=== PATIENT | female | born 1960 | race African-American/Black ===

== ENCOUNTER 2020-12-05 10:30 | Inpatient (IN) | payer OTHER, MEDICAID ==
[~2020-12-05] VITALS: Ht 165.1 cm; Wt 134.1 kg
[2020-12-05] VITALS (26 sets, daily range): BP systolic 92–147; BP diastolic 48–84
[2020-12-05 11:35] LABS: Eosinophils # (auto) 0.1 10 ^3/uL (0-0.8); Neutrophils # (auto) 5.5 10 ^3/uL (1.6-8.6); White Blood Cell 7.5 10^3/uL (4.4-10.8)
[2020-12-05 11:37] LABS: Basophils # (auto) 0 10 ^3/uL (0-0.2); Basophils % (auto) 0.3 % (0.0-2.0); Eosinophils % (auto) 1.5 % (0.0-7.0); Hematocrit 39.3 % (36.0-46.0); Hemoglobin 12.1 g/dL (12.2-16.2); Lymphocytes # (auto) 1.3 10 ^3/uL (0.4-5.4); Lymphocytes % (auto) 17.9 % (10.0-50.0); Mean Corpuscular Hemoglobin 28.4 pg (28.0-32.0); Mean Corpuscular Hgb Conc. 30.9 g/dL (32.0-36.0); Mean Corpuscular Volume 91.9 fL (80.0-100.0); Monocytes # (auto) 0.5 10 ^3/uL (0-1.3); Monocytes % (auto) 6.4 % (0.0-12.0); Neutrophils % (auto) 73.9 % (37.0-80.0); Nucleated Red Blood Cells % 0.2 %; Red Blood Cells 4.28 10^6/uL (4.0-5.20); Red Cell Distribution Width 16.6 % (11.8-14.3)
[2020-12-05 11:50] LABS: Urine Bacteria FEW /hpf (None Seen); Urine Blood Negative /uL (Negative); Urine Hyaline Cast FEW /lpf (0 - 2); Urine Mucus FEW (None Seen); Urine Specific Gravity 1.014 (1.001-1.035); Urine WBC 1 /hpf (0 - 5)
[2020-12-05 12:00] LABS: Chloride 94 mmol/L (98-107); Potassium 4.5 mmol/L (3.5-5.1); Sodium 140 mmol/L (136-145)
[2020-12-05 12:09] LABS: Alanine Aminotransferase 9 U/L (13-56); Alkaline Phosphatase 67 U/L (45-117); Aspartate Aminotransferase 9 U/L (15-37); BUN/Creatinine Ratio 34.5; Bilirubin, Total 0.3 mg/dL (0.2-1.0); Blood Urea Nitrogen 20 mg/dL (7-18); Calcium 8.8 mg/dL (8.5-10.1); GFR African American 135 mL/min; GFR Non-African American 112 mL/min; Glucose 167 mg/dL (74-106)
[2020-12-05 12:44] LABS: Anion Gap -1 (5-15); Carbon Dioxide 47 mmol/L (21-32)
[2020-12-05] MEDS ORDERED: SUCCINYLCHOLINE CHLORIDE 20 MG/ML 10ML VIAL IV ONE ×2 (16:42→16:45)
[2020-12-05] MEDS ORDERED: ETOMIDATE (2MG/ML) 20ML VIAL IV ONE ×2 (16:42→16:45)
[2020-12-05] MEDS: NOREPINEPHRINE 8 MG/250ML KIT 250 ML IV SCH (16:45)
[2020-12-05] MEDS: MIDAZOLAM DRIP 50 mg/50mL 50 ML IV SCH ×2 (16:50→20:54)
[2020-12-05] MEDS: fentaNYL Drip 2500mCg/250mlNS 250 ML IV SCH (17:12)
[2020-12-05] MEDS ORDERED: ONDANSETRON HCL 4 MG/2 ML VIAL IV PRN (17:15)
[2020-12-05] MEDS ORDERED: MORPHINE SULF INJ 2 MG/ML SYRINGE 1ML IV PRN ×2 (17:15)
[2020-12-05] MEDS ORDERED: HYDROcodone-ACET 5/325MG TAB PO PRN (17:15)
[2020-12-05] MEDS ORDERED: FUROSEMIDE 40 MG/4 ML VIAL IV ONE (17:15)
[2020-12-05] MEDS ORDERED: NITROGLYCERIN 0.4 MG SL TAB SL PRN (17:15)
[2020-12-05] MEDS: PROPOFOL 100 ML IV SCH (17:30)
[2020-12-05] MEDS ORDERED: cefTRIAXone 1GM/50ML D5W 50 ML IV ONE (17:30)
[2020-12-05] MEDS ORDERED: AZITHROMYCIN 500MG/ 250ML 250 ML IV ONE (18:30)
[2020-12-05] MEDS: ALBUTEROL SULF 2.5 MG/0.5ML(0.5%) NEB SOLN NEB SCH (20:23)
[2020-12-05] MEDS: IPRATROPIUM BROM 0.5 MG/2.5ML INH SOL NEB SCH (20:24)
[2020-12-05] MEDS: ENOXAPARIN SOD 40 MG/0.4 ML SYRINGE SC SCH (21:06)
[2020-12-05] MEDS: ACETAMINOPHEN 500 MG TAB PO PRN (22:28)
[2020-12-06] VITALS (99 sets, daily range): BP systolic 85–152; BP diastolic 44–77
[2020-12-06] MEDS: ALBUTEROL SULF 2.5 MG/0.5ML(0.5%) NEB SOLN NEB SCH ×5 (00:24→23:53)
[2020-12-06] MEDS: IPRATROPIUM BROM 0.5 MG/2.5ML INH SOL NEB SCH ×5 (00:24→23:53)
[2020-12-06] MEDS: fentaNYL Drip 2500mCg/250mlNS 250 ML IV SCH (02:03)
[2020-12-06] MEDS: MIDAZOLAM DRIP 50 mg/50mL 50 ML IV SCH ×5 (02:45→22:05)
[2020-12-06 04:25] LABS: Basophils # (auto) 0 10 ^3/uL (0-0.2); Basophils % (auto) 0.4 % (0.0-2.0); Eosinophils # (auto) 0.1 10 ^3/uL (0-0.8); Monocytes # (auto) 0.5 10 ^3/uL (0-1.3); Monocytes % (auto) 8.1 % (0.0-12.0); Neutrophils # (auto) 4.4 10 ^3/uL (1.6-8.6)
[2020-12-06 04:27] LABS: Hematocrit 39.1 % (36.0-46.0); Lymphocytes # (auto) 0.9 10 ^3/uL (0.4-5.4); Lymphocytes % (auto) 15.2 % (10.0-50.0); Mean Corpuscular Hemoglobin 28.2 pg (28.0-32.0); Mean Corpuscular Hgb Conc. 30.8 g/dL (32.0-36.0); Mean Corpuscular Volume 91.5 fL (80.0-100.0); Neutrophils % (auto) 74.3 % (37.0-80.0); Nucleated Red Blood Cells % 0.2 %; Red Blood Cells 4.27 10^6/uL (4.0-5.20); Red Cell Distribution Width 16.1 % (11.8-14.3); White Blood Cell 5.9 10^3/uL (4.4-10.8)
[2020-12-06 04:34] LABS: BUN/Creatinine Ratio 28.4; Calcium 8.6 mg/dL (8.5-10.1); Potassium 3.6 mmol/L (3.5-5.1)
[2020-12-06] MEDS: PROPOFOL 100 ML IV SCH (08:54)
[2020-12-06] MEDS: cefTRIAXone 1GM/50ML D5W 50 ML IV SCH (10:16)
[2020-12-06] MEDS: FUROSEMIDE 40 MG/4 ML VIAL IV SCH (10:17)
[2020-12-06] MEDS: ENOXAPARIN SOD 40 MG/0.4 ML SYRINGE SC SCH ×2 (10:17→22:05)
[2020-12-06] MEDS: AZITHROMYCIN 500MG/ 250ML 250 ML IV SCH (10:17)
[2020-12-06] MEDS ORDERED: DEXTROSE (50%) 50ML SYRG IV PRN (12:00)
[2020-12-06] MEDS: ACCU-CHEK COMFORT CURVE STRIP VI SCH ×2 (12:00→18:00)
[2020-12-06] MEDS ORDERED: Glucerna 1.2 Cal 1Liter BOTTLE GT SCH (12:00)
[2020-12-06] MEDS: InsuLIN REG 1unit/0.01ml Soln (100units/ml) SC SCH ×2 (12:00→18:00)
[2020-12-06] MEDS ORDERED: FAMOTIDINE (10MG/ML) 2ML VL IV ONE (12:00)
[2020-12-06] MEDS: NOREPINEPHRINE 8 MG/250ML KIT 250 ML IV SCH (16:45)
[2020-12-07] VITALS (74 sets, daily range): BP systolic 87–149; BP diastolic 36–86
[2020-12-07] MEDS: ACCU-CHEK COMFORT CURVE STRIP VI SCH ×5 (00:12→23:54)
[2020-12-07] MEDS: InsuLIN REG 1unit/0.01ml Soln (100units/ml) SC SCH ×4 (00:18→18:28)
[2020-12-07] MEDS: MIDAZOLAM DRIP 50 mg/50mL 50 ML IV SCH ×5 (02:07→22:40)
[2020-12-07] MEDS: PROPOFOL 100 ML IV SCH (05:40)
[2020-12-07 05:56] LABS: Basophils # (auto) 0.1 10 ^3/uL (0-0.2); Basophils % (auto) 0.6 % (0.0-2.0); Calcium 8.5 mg/dL (8.5-10.1); Eosinophils # (auto) 0.2 10 ^3/uL (0-0.8); Eosinophils % (auto) 2.7 % (0.0-7.0); Hematocrit 38.1 % (36.0-46.0); Lymphocytes # (auto) 0.7 10 ^3/uL (0.4-5.4); Lymphocytes % (auto) 7.9 % (10.0-50.0); Mean Corpuscular Hemoglobin 27.9 pg (28.0-32.0); Mean Corpuscular Hgb Conc. 31.4 g/dL (32.0-36.0); Mean Corpuscular Volume 88.8 fL (80.0-100.0); Monocytes # (auto) 0.6 10 ^3/uL (0-1.3); Monocytes % (auto) 7.5 % (0.0-12.0); Neutrophils # (auto) 6.8 10 ^3/uL (1.6-8.6); Neutrophils % (auto) 81.3 % (37.0-80.0); Nucleated Red Blood Cells % 0.1 %; Potassium 3.6 mmol/L (3.5-5.1); Red Blood Cells 4.28 10^6/uL (4.0-5.20); Red Cell Distribution Width 16.5 % (11.8-14.3); White Blood Cell 8.4 10^3/uL (4.4-10.8)
[2020-12-07] MEDS: IPRATROPIUM BROM 0.5 MG/2.5ML INH SOL NEB SCH ×3 (06:08→17:46)
[2020-12-07] MEDS: ALBUTEROL SULF 2.5 MG/0.5ML(0.5%) NEB SOLN NEB SCH ×3 (06:08→17:46)
[2020-12-07] MEDS: FUROSEMIDE 40 MG/4 ML VIAL IV SCH (11:11)
[2020-12-07] MEDS: cefTRIAXone 1GM/50ML D5W 50 ML IV SCH (11:11)
[2020-12-07] MEDS: ENOXAPARIN SOD 40 MG/0.4 ML SYRINGE SC SCH ×2 (11:12→22:00)
[2020-12-07] MEDS: AZITHROMYCIN 500MG/ 250ML 250 ML IV SCH (11:12)
[2020-12-07] MEDS: FAMOTIDINE (10MG/ML) 2ML VL IV SCH (11:12)
[2020-12-07] MEDS ORDERED: POTASSIUM EFFERVESENT TAB 25 MEQ GT ONE (13:15)
[2020-12-07] MEDS ORDERED: FUROSEMIDE 40 MG/4 ML VIAL IV ONE ×2 (13:15→13:30)
[2020-12-07] MEDS: NOREPINEPHRINE 8 MG/250ML KIT 250 ML IV SCH (16:45)
[2020-12-07] MEDS: fentaNYL Drip 2500mCg/250mlNS 250 ML IV SCH (22:30)
[2020-12-07] MEDS: ACETAMINOPHEN 500 MG TAB PO PRN (22:40)
[2020-12-08] VITALS (96 sets, daily range): BP systolic 88–131; BP diastolic 43–72
[2020-12-08] MEDS: IPRATROPIUM BROM 0.5 MG/2.5ML INH SOL NEB SCH ×4 (00:30→19:47)
[2020-12-08] MEDS: NOREPINEPHRINE 8 MG/250ML KIT 250 ML IV SCH (04:30)
[2020-12-08] MEDS: MIDAZOLAM DRIP 50 mg/50mL 50 ML IV SCH ×4 (04:32→19:45)
[2020-12-08 04:51] LABS: Basophils # (auto) 0.1 10 ^3/uL (0-0.2); Basophils % (auto) 0.6 % (0.0-2.0); Eosinophils # (auto) 0.4 10 ^3/uL (0-0.8); Eosinophils % (auto) 4.6 % (0.0-7.0); Hematocrit 38.9 % (36.0-46.0); Hemoglobin 12.5 g/dL (12.2-16.2); Lymphocytes # (auto) 0.9 10 ^3/uL (0.4-5.4); Lymphocytes % (auto) 10.4 % (10.0-50.0); Mean Corpuscular Hemoglobin 28.4 pg (28.0-32.0); Mean Corpuscular Hgb Conc. 32.1 g/dL (32.0-36.0); Mean Corpuscular Volume 88.5 fL (80.0-100.0); Monocytes # (auto) 0.6 10 ^3/uL (0-1.3); Monocytes % (auto) 6.7 % (0.0-12.0); Neutrophils # (auto) 6.7 10 ^3/uL (1.6-8.6); Neutrophils % (auto) 77.7 % (37.0-80.0); Nucleated Red Blood Cells % 0.1 %; Red Cell Distribution Width 16.9 % (11.8-14.3); White Blood Cell 8.7 10^3/uL (4.4-10.8)
[2020-12-08 05:15] LABS: Calcium 8.8 mg/dL (8.5-10.1); Potassium 3.9 mmol/L (3.5-5.1)
[2020-12-08] MEDS: ACCU-CHEK COMFORT CURVE STRIP VI SCH ×4 (05:33→23:39)
[2020-12-08] MEDS: InsuLIN REG 1unit/0.01ml Soln (100units/ml) SC SCH ×5 (05:35→23:57)
[2020-12-08] MEDS: ALBUTEROL SULF 2.5 MG/0.5ML(0.5%) NEB SOLN NEB SCH ×3 (05:51→19:47)
[2020-12-08] MEDS: cefTRIAXone 1GM/50ML D5W 50 ML IV SCH (09:23)
[2020-12-08] MEDS: FAMOTIDINE (10MG/ML) 2ML VL IV SCH (09:24)
[2020-12-08] MEDS: FUROSEMIDE 40 MG/4 ML VIAL IV SCH (09:24)
[2020-12-08] MEDS: ENOXAPARIN SOD 40 MG/0.4 ML SYRINGE SC SCH ×2 (09:24→20:45)
[2020-12-08] MEDS: fentaNYL Drip 2500mCg/250mlNS 250 ML IV SCH ×2 (10:00→23:57)
[2020-12-08] MEDS: AZITHROMYCIN 500MG/ 250ML 250 ML IV SCH (10:23)
[2020-12-08] MEDS: PROPOFOL 100 ML IV SCH ×3 (12:18→22:14)
[2020-12-08] MEDS: PIPERACILLIN-TAZOB 3.375GM 100 ML IV SCH (20:45)
[2020-12-09] VITALS (104 sets, daily range): BP systolic 73–145; BP diastolic 37–81
[2020-12-09] MEDS: IPRATROPIUM BROM 0.5 MG/2.5ML INH SOL NEB SCH ×5 (00:22→23:32)
[2020-12-09] MEDS: ALBUTEROL SULF 2.5 MG/0.5ML(0.5%) NEB SOLN NEB SCH ×4 (00:23→23:32)
[2020-12-09] MEDS: MIDAZOLAM DRIP 50 mg/50mL 50 ML IV SCH ×5 (00:45→20:45)
[2020-12-09] MEDS: NOREPINEPHRINE 8 MG/250ML KIT 250 ML IV SCH (02:00)
[2020-12-09 04:37] LABS: Basophils # (auto) 0 10 ^3/uL (0-0.2); Basophils % (auto) 0.5 % (0.0-2.0); Eosinophils # (auto) 0.4 10 ^3/uL (0-0.8); Eosinophils % (auto) 5.8 % (0.0-7.0); Hemoglobin 12.2 g/dL (12.2-16.2); Lymphocytes # (auto) 0.7 10 ^3/uL (0.4-5.4); Lymphocytes % (auto) 9.5 % (10.0-50.0); Mean Corpuscular Hemoglobin 28.3 pg (28.0-32.0); Mean Corpuscular Hgb Conc. 32.1 g/dL (32.0-36.0); Mean Corpuscular Volume 88.2 fL (80.0-100.0); Monocytes # (auto) 0.5 10 ^3/uL (0-1.3); Monocytes % (auto) 7.3 % (0.0-12.0); Neutrophils # (auto) 5.6 10 ^3/uL (1.6-8.6); Neutrophils % (auto) 76.9 % (37.0-80.0); Nucleated Red Blood Cells % 0.2 %; Red Cell Distribution Width 17.2 % (11.8-14.3); White Blood Cell 7.3 10^3/uL (4.4-10.8)
[2020-12-09 04:56] LABS: Calcium 8.3 mg/dL (8.5-10.1); Potassium 3.7 mmol/L (3.5-5.1)
[2020-12-09 04:59] LABS: Albumin 2.2 g/dL (3.4-5.0); BUN/Creatinine Ratio 13.4
[2020-12-09 05:02] LABS: Bilirubin, Total 0.5 mg/dL (0.2-1.0); Total Protein 7.1 g/dL (6.4-8.2)
[2020-12-09] MEDS: PIPERACILLIN-TAZOB 3.375GM 100 ML IV SCH ×3 (06:15→21:31)
[2020-12-09] MEDS: ACCU-CHEK COMFORT CURVE STRIP VI SCH ×4 (06:15→23:53)
[2020-12-09] MEDS: InsuLIN REG 1unit/0.01ml Soln (100units/ml) SC SCH ×4 (06:27→23:54)
[2020-12-09] MEDS: FUROSEMIDE 40 MG/4 ML VIAL IV SCH (09:14)
[2020-12-09] MEDS: FAMOTIDINE (10MG/ML) 2ML VL IV SCH (09:14)
[2020-12-09] MEDS: ENOXAPARIN SOD 40 MG/0.4 ML SYRINGE SC SCH ×2 (09:15→21:31)
[2020-12-10] VITALS (76 sets, daily range): BP systolic 91–144; BP diastolic 44–92
[2020-12-10] MEDS: MIDAZOLAM DRIP 50 mg/50mL 50 ML IV SCH ×5 (01:45→21:45)
[2020-12-10 04:48] LABS: Eosinophils # (auto) 0.3 10 ^3/uL (0-0.8); Hematocrit 37.6 % (36.0-46.0); Hemoglobin 12.2 g/dL (12.2-16.2); Neutrophils # (auto) 3.7 10 ^3/uL (1.6-8.6); Nucleated Red Blood Cells % 0.1 %; White Blood Cell 5.3 10^3/uL (4.4-10.8)
[2020-12-10 04:52] LABS: Basophils # (auto) 0 10 ^3/uL (0-0.2); Basophils % (auto) 0.8 % (0.0-2.0); Eosinophils % (auto) 5.7 % (0.0-7.0); Lymphocytes # (auto) 0.9 10 ^3/uL (0.4-5.4); Lymphocytes % (auto) 17.2 % (10.0-50.0); Mean Corpuscular Hemoglobin 28.3 pg (28.0-32.0); Mean Corpuscular Hgb Conc. 32.5 g/dL (32.0-36.0); Monocytes # (auto) 0.3 10 ^3/uL (0-1.3); Monocytes % (auto) 6.3 % (0.0-12.0); Red Blood Cells 4.33 10^6/uL (4.0-5.20); Red Cell Distribution Width 16.6 % (11.8-14.3)
[2020-12-10 05:29] LABS: Calcium 8.5 mg/dL (8.5-10.1); Potassium 3.2 mmol/L (3.5-5.1)
[2020-12-10 05:32] LABS: BUN/Creatinine Ratio 14.7
[2020-12-10] MEDS: ALBUTEROL SULF 2.5 MG/0.5ML(0.5%) NEB SOLN NEB SCH ×3 (06:27→18:07)
[2020-12-10] MEDS: IPRATROPIUM BROM 0.5 MG/2.5ML INH SOL NEB SCH ×3 (06:27→18:07)
[2020-12-10] MEDS: PIPERACILLIN-TAZOB 3.375GM 100 ML IV SCH ×3 (06:30→21:15)
[2020-12-10] MEDS: InsuLIN REG 1unit/0.01ml Soln (100units/ml) SC SCH ×4 (06:34→23:25)
[2020-12-10] MEDS: ACCU-CHEK COMFORT CURVE STRIP VI SCH ×4 (06:34→23:26)
[2020-12-10] MEDS: POTASSIUM CHL 20MEQ/100ML 100 ML IV SCH ×2 (07:38→09:25)
[2020-12-10] MEDS: PROPOFOL 100 ML IV SCH (07:39)
[2020-12-10] MEDS: fentaNYL Drip 2500mCg/250mlNS 250 ML IV SCH (09:25)
[2020-12-10] MEDS: NOREPINEPHRINE 8 MG/250ML KIT 250 ML IV SCH (09:25)
[2020-12-10] MEDS: ENOXAPARIN SOD 40 MG/0.4 ML SYRINGE SC SCH ×2 (09:51→21:15)
[2020-12-10] MEDS: FUROSEMIDE 40 MG/4 ML VIAL IV SCH (09:51)
[2020-12-10] MEDS: FAMOTIDINE (10MG/ML) 2ML VL IV SCH (09:51)
[2020-12-11] VITALS (45 sets, daily range): BP systolic 93–150; BP diastolic 48–84
[2020-12-11] MEDS: IPRATROPIUM BROM 0.5 MG/2.5ML INH SOL NEB SCH ×4 (00:27→18:39)
[2020-12-11] MEDS: fentaNYL Drip 2500mCg/250mlNS 250 ML IV SCH (00:41)
[2020-12-11] MEDS: MIDAZOLAM DRIP 50 mg/50mL 50 ML IV SCH ×5 (02:45→22:45)
[2020-12-11 04:37] LABS: Albumin 2.3 g/dL (3.4-5.0); Calcium 8.4 mg/dL (8.5-10.1); Potassium 3.4 mmol/L (3.5-5.1)
[2020-12-11 04:42] LABS: Bilirubin, Total 0.4 mg/dL (0.2-1.0); Total Protein 7.2 g/dL (6.4-8.2)
[2020-12-11] MEDS: ACCU-CHEK COMFORT CURVE STRIP VI SCH ×3 (05:34→17:38)
[2020-12-11] MEDS: PIPERACILLIN-TAZOB 3.375GM 100 ML IV SCH ×3 (05:34→21:38)
[2020-12-11] MEDS: InsuLIN REG 1unit/0.01ml Soln (100units/ml) SC SCH ×3 (05:35→17:39)
[2020-12-11] MEDS: ALBUTEROL SULF 2.5 MG/0.5ML(0.5%) NEB SOLN NEB SCH ×3 (06:03→18:38)
[2020-12-11] MEDS: PROPOFOL 100 ML IV SCH (07:06)
[2020-12-11 08:53] LABS: Basophils # (auto) 0 10 ^3/uL (0-0.2); Basophils % (auto) 0.6 % (0.0-2.0); Eosinophils # (auto) 0.4 10 ^3/uL (0-0.8); Eosinophils % (auto) 7.2 % (0.0-7.0); Hematocrit 37.2 % (36.0-46.0); Hemoglobin 12.1 g/dL (12.2-16.2); Lymphocytes # (auto) 0.7 10 ^3/uL (0.4-5.4); Lymphocytes % (auto) 12.2 % (10.0-50.0); Mean Corpuscular Hemoglobin 28.1 pg (28.0-32.0); Mean Corpuscular Hgb Conc. 32.4 g/dL (32.0-36.0); Mean Corpuscular Volume 86.6 fL (80.0-100.0); Monocytes # (auto) 0.5 10 ^3/uL (0-1.3); Monocytes % (auto) 9.1 % (0.0-12.0); Neutrophils # (auto) 4.1 10 ^3/uL (1.6-8.6); Neutrophils % (auto) 70.9 % (37.0-80.0); Red Blood Cells 4.29 10^6/uL (4.0-5.20); Red Cell Distribution Width 16.5 % (11.8-14.3); White Blood Cell 5.7 10^3/uL (4.4-10.8)
[2020-12-11] MEDS: FUROSEMIDE 40 MG/4 ML VIAL IV SCH (09:28)
[2020-12-11] MEDS: FAMOTIDINE (10MG/ML) 2ML VL IV SCH (09:28)
[2020-12-11] MEDS: POTASSIUM CHL 20MEQ/100ML 100 ML IV SCH ×2 (09:28→11:26)
[2020-12-11] MEDS: ENOXAPARIN SOD 40 MG/0.4 ML SYRINGE SC SCH ×2 (09:28→21:38)
[2020-12-11] MEDS: NOREPINEPHRINE 8 MG/250ML KIT 250 ML IV SCH (11:43)
[2020-12-12] VITALS (84 sets, daily range): BP systolic 82–146; BP diastolic 42–74
[2020-12-12] MEDS: ACCU-CHEK COMFORT CURVE STRIP VI SCH ×5 (00:17→23:41)
[2020-12-12] MEDS: InsuLIN REG 1unit/0.01ml Soln (100units/ml) SC SCH ×5 (00:18→23:44)
[2020-12-12] MEDS: IPRATROPIUM BROM 0.5 MG/2.5ML INH SOL NEB SCH ×4 (00:21→18:10)
[2020-12-12] MEDS: MIDAZOLAM DRIP 50 mg/50mL 50 ML IV SCH ×5 (03:45→23:45)
[2020-12-12 04:34] LABS: Basophils # (auto) 0 10 ^3/uL (0-0.2); Basophils % (auto) 0.5 % (0.0-2.0); Eosinophils # (auto) 0.4 10 ^3/uL (0-0.8); Eosinophils % (auto) 7.6 % (0.0-7.0); Hematocrit 36.5 % (36.0-46.0); Lymphocytes % (auto) 18.6 % (10.0-50.0); Mean Corpuscular Hemoglobin 28.4 pg (28.0-32.0); Mean Corpuscular Hgb Conc. 32.8 g/dL (32.0-36.0); Mean Corpuscular Volume 86.5 fL (80.0-100.0); Monocytes # (auto) 0.5 10 ^3/uL (0-1.3); Monocytes % (auto) 10.2 % (0.0-12.0); Neutrophils # (auto) 3.3 10 ^3/uL (1.6-8.6); Neutrophils % (auto) 63.1 % (37.0-80.0); Nucleated Red Blood Cells % 0.1 %; Red Blood Cells 4.22 10^6/uL (4.0-5.20); Red Cell Distribution Width 16.6 % (11.8-14.3); White Blood Cell 5.3 10^3/uL (4.4-10.8)
[2020-12-12 04:53] LABS: Potassium 3.4 mmol/L (3.5-5.1)
[2020-12-12 05:02] LABS: Albumin 2.2 g/dL (3.4-5.0); BUN/Creatinine Ratio 15.4; Bilirubin, Total 0.4 mg/dL (0.2-1.0); Calcium 8.3 mg/dL (8.5-10.1); Total Protein 7.2 g/dL (6.4-8.2)
[2020-12-12] MEDS: PROPOFOL 100 ML IV SCH (05:22)
[2020-12-12] MEDS: ALBUTEROL SULF 2.5 MG/0.5ML(0.5%) NEB SOLN NEB SCH ×3 (05:43→18:10)
[2020-12-12] MEDS: PIPERACILLIN-TAZOB 3.375GM 100 ML IV SCH ×3 (05:50→23:23)
[2020-12-12] MEDS: FUROSEMIDE 40 MG/4 ML VIAL IV SCH (10:29)
[2020-12-12] MEDS: FAMOTIDINE (10MG/ML) 2ML VL IV SCH (10:29)
[2020-12-12] MEDS: ENOXAPARIN SOD 40 MG/0.4 ML SYRINGE SC SCH ×2 (10:29→23:23)
[2020-12-12] MEDS: POTASSIUM CHL 20MEQ/100ML 100 ML IV SCH ×2 (11:02→11:54)
[2020-12-12] MEDS: NOREPINEPHRINE 8 MG/250ML KIT 250 ML IV SCH (16:45)
[2020-12-12] MEDS: fentaNYL Drip 2500mCg/250mlNS 250 ML IV SCH (16:45)
[2020-12-12 17:57] LABS: INR 1.08 (0.9-1.15); Partial Thromboplastin Time 25.7 sec (23.0-31.2)
[2020-12-13] VITALS (83 sets, daily range): BP systolic 102–160; BP diastolic 42–81
[2020-12-13] MEDS: fentaNYL Drip 2500mCg/250mlNS 250 ML IV SCH ×2 (01:11→16:45)
[2020-12-13] MEDS: PROPOFOL 100 ML IV SCH (02:22)
[2020-12-13] MEDS: MIDAZOLAM DRIP 50 mg/50mL 50 ML IV SCH ×5 (04:45→23:13)
[2020-12-13 04:50] LABS: BUN/Creatinine Ratio 15.9; Calcium 8.8 mg/dL (8.5-10.1); Potassium 3.4 mmol/L (3.5-5.1)
[2020-12-13 05:04] LABS: Basophils # (auto) 0 10 ^3/uL (0-0.2); Basophils % (auto) 0.7 % (0.0-2.0); Eosinophils # (auto) 0.4 10 ^3/uL (0-0.8); Eosinophils % (auto) 6.8 % (0.0-7.0); Hematocrit 36.3 % (36.0-46.0); Hemoglobin 11.8 g/dL (12.2-16.2); Lymphocytes % (auto) 18.8 % (10.0-50.0); Mean Corpuscular Hemoglobin 28.2 pg (28.0-32.0); Mean Corpuscular Hgb Conc. 32.5 g/dL (32.0-36.0); Mean Corpuscular Volume 86.9 fL (80.0-100.0); Monocytes # (auto) 0.5 10 ^3/uL (0-1.3); Monocytes % (auto) 9.4 % (0.0-12.0); Neutrophils # (auto) 3.5 10 ^3/uL (1.6-8.6); Neutrophils % (auto) 64.3 % (37.0-80.0); Nucleated Red Blood Cells % 0.2 %; Red Blood Cells 4.18 10^6/uL (4.0-5.20); Red Cell Distribution Width 16.1 % (11.8-14.3); White Blood Cell 5.4 10^3/uL (4.4-10.8)
[2020-12-13] MEDS: PIPERACILLIN-TAZOB 3.375GM 100 ML IV SCH ×3 (05:45→22:07)
[2020-12-13] MEDS: ACCU-CHEK COMFORT CURVE STRIP VI SCH ×4 (05:46→23:22)
[2020-12-13] MEDS: InsuLIN REG 1unit/0.01ml Soln (100units/ml) SC SCH ×4 (05:48→23:26)
[2020-12-13] MEDS: IPRATROPIUM BROM 0.5 MG/2.5ML INH SOL NEB SCH ×3 (05:57→17:38)
[2020-12-13] MEDS: ALBUTEROL SULF 2.5 MG/0.5ML(0.5%) NEB SOLN NEB SCH ×3 (05:57→17:38)
[2020-12-13] MEDS: ENOXAPARIN SOD 40 MG/0.4 ML SYRINGE SC SCH ×2 (10:52→22:07)
[2020-12-13] MEDS: FAMOTIDINE (10MG/ML) 2ML VL IV SCH (10:52)
[2020-12-13] MEDS: FUROSEMIDE 40 MG/4 ML VIAL IV SCH (10:52)
[2020-12-13] MEDS ORDERED: POTASSIUM EFFERVESENT TAB 25 MEQ GT ONE (14:30)
[2020-12-13] MEDS ORDERED: FUROSEMIDE 20 MG/2 ML VIAL IV ONE (14:30)
[2020-12-13] MEDS: NOREPINEPHRINE 8 MG/250ML KIT 250 ML IV SCH (16:24)
[2020-12-13] MEDS: SODIUM CHLOR 0.9% PF (SALINE LOCK) 10ML VIAL/SYR IV SCH (22:07)
[2020-12-14] VITALS (40 sets, daily range): BP systolic 100–168; BP diastolic 45–86
[2020-12-14] MEDS: PROPOFOL 100 ML IV SCH (01:54)
[2020-12-14] MEDS: fentaNYL Drip 2500mCg/250mlNS 250 ML IV SCH (03:36)
[2020-12-14 04:06] LABS: Basophils # (auto) 0.1 10 ^3/uL (0-0.2); Basophils % (auto) 0.8 % (0.0-2.0); Eosinophils # (auto) 0.1 10 ^3/uL (0-0.8); Eosinophils % (auto) 0.7 % (0.0-7.0); Hematocrit 36.5 % (36.0-46.0); Hemoglobin 12.1 g/dL (12.2-16.2); Mean Corpuscular Hemoglobin 28.7 pg (28.0-32.0); Mean Corpuscular Hgb Conc. 33.1 g/dL (32.0-36.0); Mean Corpuscular Volume 86.6 fL (80.0-100.0); Monocytes # (auto) 0.7 10 ^3/uL (0-1.3); Neutrophils # (auto) 6.7 10 ^3/uL (1.6-8.6); Neutrophils % (auto) 78.5 % (37.0-80.0); Red Blood Cells 4.22 10^6/uL (4.0-5.20); Red Cell Distribution Width 16.2 % (11.8-14.3); White Blood Cell 8.5 10^3/uL (4.4-10.8)
[2020-12-14 04:29] LABS: BUN/Creatinine Ratio 15.5; Calcium 8.4 mg/dL (8.5-10.1); Potassium 3.9 mmol/L (3.5-5.1)
[2020-12-14] MEDS: ACCU-CHEK COMFORT CURVE STRIP VI SCH ×3 (05:40→17:50)
[2020-12-14] MEDS: MIDAZOLAM DRIP 50 mg/50mL 50 ML IV SCH (05:41)
[2020-12-14] MEDS: PIPERACILLIN-TAZOB 3.375GM 100 ML IV SCH ×3 (05:41→21:59)
[2020-12-14] MEDS: InsuLIN REG 1unit/0.01ml Soln (100units/ml) SC SCH ×3 (05:43→17:52)
[2020-12-14] MEDS: ALBUTEROL SULF 2.5 MG/0.5ML(0.5%) NEB SOLN NEB SCH ×3 (06:03→18:54)
[2020-12-14] MEDS: IPRATROPIUM BROM 0.5 MG/2.5ML INH SOL NEB SCH ×3 (06:03→18:54)
[2020-12-14] MEDS ORDERED: EPINEPHrine HCL 0.5 ML NEB ONE (07:18)
[2020-12-14] MEDS: SODIUM CHLOR 0.9% PF (SALINE LOCK) 10ML VIAL/SYR IV SCH ×2 (10:00→21:59)
[2020-12-14] MEDS ORDERED: ENOXAPARIN SOD 60 MG/0.6 ML SYRINGE SC ONE (10:48)
[2020-12-14] MEDS: ENOXAPARIN SOD 40 MG/0.4 ML SYRINGE SC SCH ×2 (10:51→22:00)
[2020-12-14] MEDS: FAMOTIDINE (10MG/ML) 2ML VL IV SCH (10:51)
[2020-12-14] MEDS: FUROSEMIDE 40 MG/4 ML VIAL IV SCH (10:52)
[2020-12-14] MEDS ORDERED: FUROSEMIDE 20 MG/2 ML VIAL IV ONE ×2 (11:15→11:30)
[2020-12-14] MEDS ORDERED: FUROSEMIDE 20 MG/2 ML VIAL ONE (11:28)
[2020-12-14] MEDS ORDERED: ACETAMINOPHEN 650 MG RECT SUPP PR ONE (17:45)
[2020-12-14] MEDS ORDERED: METOCLOPRAMIDE HCL 5MG/ml INJ 2ml VIAL IV ONE (20:45)
[2020-12-14] MEDS ORDERED: METOCLOPRAMIDE HCL 5MG/ml INJ 2ml VIAL ONE (20:56)
[2020-12-15] VITALS (21 sets, daily range): BP systolic 118–171; BP diastolic 64–92
[2020-12-15] MEDS: ACCU-CHEK COMFORT CURVE STRIP VI SCH ×4 (00:32→18:00)
[2020-12-15] MEDS: InsuLIN REG 1unit/0.01ml Soln (100units/ml) SC SCH ×4 (00:33→18:51)
[2020-12-15 05:14] LABS: BUN/Creatinine Ratio 16.7; Calcium 8.8 mg/dL (8.5-10.1)
[2020-12-15] MEDS: PIPERACILLIN-TAZOB 3.375GM 100 ML IV SCH ×3 (05:57→22:00)
[2020-12-15] MEDS: ALBUTEROL SULF 2.5 MG/0.5ML(0.5%) NEB SOLN NEB SCH ×4 (06:07→21:46)
[2020-12-15] MEDS: IPRATROPIUM BROM 0.5 MG/2.5ML INH SOL NEB SCH ×4 (06:07→21:46)
[2020-12-15] MEDS: ENOXAPARIN SOD 40 MG/0.4 ML SYRINGE SC SCH ×2 (10:00→22:00)
[2020-12-15] MEDS: SODIUM CHLOR 0.9% PF (SALINE LOCK) 10ML VIAL/SYR IV SCH ×2 (10:00→22:57)
[2020-12-15] MEDS: FLUCONAZOLE 200MG/100ML 100 ML IV SCH ×2 (11:00→18:19)
[2020-12-15] MEDS ORDERED: HALOPERIDOL LACTATE 5 MG/ML INJ VIAL IM ONE (15:00)
[2020-12-15] MEDS ORDERED: HALOPERIDOL LACTATE 5 MG/ML INJ VIAL ONE (15:18)
[2020-12-15] MEDS: FUROSEMIDE 40 MG/4 ML VIAL IV SCH (18:20)
[2020-12-15] MEDS: POTASSIUM CHL 20MEQ/100ML 100 ML IV SCH ×2 (18:20→18:52)
[2020-12-15] MEDS: FAMOTIDINE (10MG/ML) 2ML VL IV SCH (18:20)
[2020-12-15] MEDS: MORPHINE SULF INJ 2 MG/ML SYRINGE 1ML IV PRN (22:58)
[2020-12-16] VITALS (46 sets, daily range): BP systolic 94–237; BP diastolic 53–210
[2020-12-16] MEDS: ACCU-CHEK COMFORT CURVE STRIP VI SCH ×4 (00:28→18:05)
[2020-12-16] MEDS: InsuLIN REG 1unit/0.01ml Soln (100units/ml) SC SCH ×4 (00:30→18:28)
[2020-12-16 04:31] LABS: Basophils # (auto) 0.3 10 ^3/uL (0-0.2); Basophils % (auto) 2.7 % (0.0-2.0); Eosinophils # (auto) 0.3 10 ^3/uL (0-0.8); Eosinophils % (auto) 2.4 % (0.0-7.0); Hematocrit 39.7 % (36.0-46.0); Hemoglobin 13.3 g/dL (12.2-16.2); Lymphocytes # (auto) 0.5 10 ^3/uL (0.4-5.4); Lymphocytes % (auto) 3.8 % (10.0-50.0); Mean Corpuscular Hemoglobin 29.1 pg (28.0-32.0); Mean Corpuscular Hgb Conc. 33.4 g/dL (32.0-36.0); Mean Corpuscular Volume 87.2 fL (80.0-100.0); Monocytes # (auto) 0.7 10 ^3/uL (0-1.3); Monocytes % (auto) 5.5 % (0.0-12.0); Neutrophils % (auto) 85.6 % (37.0-80.0); Red Blood Cells 4.55 10^6/uL (4.0-5.20); White Blood Cell 12.9 10^3/uL (4.4-10.8)
[2020-12-16 04:50] LABS: Calcium 8.9 mg/dL (8.5-10.1); Potassium 3.1 mmol/L (3.5-5.1)
[2020-12-16] MEDS: PIPERACILLIN-TAZOB 3.375GM 100 ML IV SCH ×3 (06:00→21:41)
[2020-12-16] MEDS: ALBUTEROL SULF 2.5 MG/0.5ML(0.5%) NEB SOLN NEB SCH ×5 (06:09→22:00)
[2020-12-16] MEDS: IPRATROPIUM BROM 0.5 MG/2.5ML INH SOL NEB SCH ×5 (06:09→22:00)
[2020-12-16] MEDS: MORPHINE SULF INJ 2 MG/ML SYRINGE 1ML IV PRN (08:10)
[2020-12-16] MEDS ORDERED: LORazepam 2MG/ML-1ML VIAL ONE (08:56)
[2020-12-16] MEDS ORDERED: FUROSEMIDE 40 MG/4 ML VIAL ONE (09:06)
[2020-12-16] MEDS ORDERED: MORPHINE SULF INJ 2 MG/ML SYRINGE 1ML ONE (09:07)
[2020-12-16] MEDS ORDERED: LORazepam 2MG/ML-1ML VIAL IV PRN (09:15)
[2020-12-16] MEDS ORDERED: MORPHINE SULF INJ 2 MG/ML SYRINGE 1ML IV PRN (09:15)
[2020-12-16] MEDS ORDERED: methylPREDNISolone SOD SUCC 125 MG/2 ML VL IV ONE (09:15)
[2020-12-16] MEDS: FUROSEMIDE 40 MG/4 ML VIAL IV SCH (09:25)
[2020-12-16] MEDS ORDERED: methylPREDNISolone SOD SUCC 125 MG/2 ML VL ONE (09:29)
[2020-12-16] MEDS: FAMOTIDINE (10MG/ML) 2ML VL IV SCH (09:32)
[2020-12-16] MEDS: FLUCONAZOLE 200MG/100ML 100 ML IV SCH ×2 (09:33→11:48)
[2020-12-16] MEDS: ENOXAPARIN SOD 40 MG/0.4 ML SYRINGE SC SCH ×2 (09:33→21:41)
[2020-12-16] MEDS: POTASSIUM CHL 20MEQ/100ML 100 ML IV SCH ×2 (09:45→11:48)
[2020-12-16] MEDS: SODIUM CHLOR 0.9% PF (SALINE LOCK) 10ML VIAL/SYR IV SCH ×2 (09:46→21:40)
[2020-12-16] MEDS ORDERED: LABETALOL HCL 5 MG/ML 4ML SYRINGE IV PRN (10:00)
[2020-12-17] VITALS (16 sets, daily range): BP systolic 120–152; BP diastolic 59–101
[2020-12-17] MEDS: InsuLIN REG 1unit/0.01ml Soln (100units/ml) SC SCH ×4 (06:15→18:02)
[2020-12-17] MEDS: ACCU-CHEK COMFORT CURVE STRIP VI SCH ×4 (06:23→17:59)
[2020-12-17] MEDS: PIPERACILLIN-TAZOB 3.375GM 100 ML IV SCH ×3 (07:17→22:48)
[2020-12-17] MEDS: FLUCONAZOLE 200MG/100ML 100 ML IV SCH ×2 (11:56→14:34)
[2020-12-17] MEDS: FAMOTIDINE (10MG/ML) 2ML VL IV SCH (11:59)
[2020-12-17] MEDS: SODIUM CHLOR 0.9% PF (SALINE LOCK) 10ML VIAL/SYR IV SCH ×2 (12:00→22:47)
[2020-12-17] MEDS: ENOXAPARIN SOD 40 MG/0.4 ML SYRINGE SC SCH ×2 (12:00→22:48)
[2020-12-17] MEDS: FUROSEMIDE 40 MG/4 ML VIAL IV SCH (12:00)
[2020-12-18] MEDS: ACCU-CHEK COMFORT CURVE STRIP VI SCH ×5 (00:47→23:37)
[2020-12-18] MEDS: InsuLIN REG 1unit/0.01ml Soln (100units/ml) SC SCH ×5 (01:03→23:58)
[2020-12-18 05:00] VITALS: BP 147/86
[2020-12-18] MEDS: PIPERACILLIN-TAZOB 3.375GM 100 ML IV SCH ×3 (06:53→22:53)
[2020-12-18 09:00] VITALS: BP 153/76
[2020-12-18] MEDS: FLUCONAZOLE 200MG/100ML 100 ML IV SCH ×2 (09:31→11:00)
[2020-12-18] MEDS: FUROSEMIDE 40 MG/4 ML VIAL IV SCH (09:32)
[2020-12-18] MEDS: ENOXAPARIN SOD 40 MG/0.4 ML SYRINGE SC SCH ×2 (09:32→22:53)
[2020-12-18] MEDS: SODIUM CHLOR 0.9% PF (SALINE LOCK) 10ML VIAL/SYR IV SCH ×2 (09:32→22:52)
[2020-12-18] MEDS: FAMOTIDINE (10MG/ML) 2ML VL IV SCH (09:32)
[2020-12-18 12:58] VITALS: BP 139/82
[2020-12-18 16:53] VITALS: BP 138/73
[2020-12-18 22:00] VITALS: BP 154/92
[2020-12-19 05:00] VITALS: BP 160/86
[2020-12-19] MEDS: PIPERACILLIN-TAZOB 3.375GM 100 ML IV SCH ×3 (06:06→21:30)
[2020-12-19 06:10] LABS: Basophils % (auto) 0.5 % (0.0-2.0); Eosinophils % (auto) 1.9 % (0.0-7.0); Lymphocytes # (auto) 1.3 10 ^3/uL (0.4-5.4); Lymphocytes % (auto) 11.4 % (10.0-50.0); Monocytes % (auto) 11.9 % (0.0-12.0); Neutrophils # (auto) 8.5 10 ^3/uL (1.6-8.6); Neutrophils % (auto) 74.3 % (37.0-80.0); Nucleated Red Blood Cells % 0.4 %; White Blood Cell 11.5 10^3/uL (4.4-10.8)
[2020-12-19 06:11] LABS: Basophils # (auto) 0.1 10 ^3/uL (0-0.2); Eosinophils # (auto) 0.2 10 ^3/uL (0-0.8); Hematocrit 44.7 % (36.0-46.0); Hemoglobin 14.2 g/dL (12.2-16.2); Mean Corpuscular Hemoglobin 28.3 pg (28.0-32.0); Mean Corpuscular Hgb Conc. 31.9 g/dL (32.0-36.0); Mean Corpuscular Volume 88.9 fL (80.0-100.0); Monocytes # (auto) 1.4 10 ^3/uL (0-1.3); Red Blood Cells 5.03 10^6/uL (4.0-5.20); Red Cell Distribution Width 16.6 % (11.8-14.3)
[2020-12-19 06:36] LABS: Potassium 3.2 mmol/L (3.5-5.1)
[2020-12-19 06:41] LABS: BUN/Creatinine Ratio 37.3; Calcium 8.7 mg/dL (8.5-10.1)
[2020-12-19] MEDS: ACCU-CHEK COMFORT CURVE STRIP VI SCH ×3 (06:56→17:07)
[2020-12-19] MEDS: InsuLIN REG 1unit/0.01ml Soln (100units/ml) SC SCH ×3 (06:57→17:06)
[2020-12-19] MEDS: FLUCONAZOLE 200MG/100ML 100 ML IV SCH ×2 (08:31→10:19)
[2020-12-19] MEDS: FAMOTIDINE (10MG/ML) 2ML VL IV SCH (08:32)
[2020-12-19] MEDS: FUROSEMIDE 40 MG/4 ML VIAL IV SCH (08:32)
[2020-12-19] MEDS: SODIUM CHLOR 0.9% PF (SALINE LOCK) 10ML VIAL/SYR IV SCH ×2 (08:32→21:30)
[2020-12-19] MEDS: ENOXAPARIN SOD 40 MG/0.4 ML SYRINGE SC SCH ×2 (08:33→21:30)
[2020-12-19 09:00] VITALS: BP 138/78
[2020-12-19] MEDS ORDERED: POTASSIUM CHL 20MEQ/100ML 100 ML IV ONE (11:00)
[2020-12-19 12:30] VITALS: BP 140/92
[2020-12-19 17:00] VITALS: BP 139/88
[2020-12-19] MEDS: IPRATROPIUM BROM 0.5 MG/2.5ML INH SOL NEB SCH (18:16)
[2020-12-19 18:18] VITALS: BP 139/88
[2020-12-19] MEDS: ALBUTEROL SULF 2.5 MG/0.5ML(0.5%) NEB SOLN NEB SCH (18:18)
[2020-12-19 22:04] VITALS: BP 157/100
[2020-12-20] MEDS: ACCU-CHEK COMFORT CURVE STRIP VI SCH ×5 (00:10→23:57)
[2020-12-20] MEDS: InsuLIN REG 1unit/0.01ml Soln (100units/ml) SC SCH ×5 (00:24→23:58)
[2020-12-20] MEDS: IPRATROPIUM BROM 0.5 MG/2.5ML INH SOL NEB SCH ×4 (01:00→19:29)
[2020-12-20] MEDS: ALBUTEROL SULF 2.5 MG/0.5ML(0.5%) NEB SOLN NEB SCH ×4 (01:00→19:29)
[2020-12-20 05:00] VITALS: BP 149/100
[2020-12-20 05:51] LABS: Albumin 2.5 g/dL (3.4-5.0); Calcium 8.6 mg/dL (8.5-10.1); Potassium 3.2 mmol/L (3.5-5.1)
[2020-12-20 06:00] LABS: Basophils # (auto) 0 10 ^3/uL (0-0.2); Basophils % (auto) 0.4 % (0.0-2.0); Eosinophils # (auto) 0.1 10 ^3/uL (0-0.8); Eosinophils % (auto) 1.1 % (0.0-7.0); Hematocrit 45.1 % (36.0-46.0); Hemoglobin 14.5 g/dL (12.2-16.2); Lymphocytes # (auto) 1.3 10 ^3/uL (0.4-5.4); Mean Corpuscular Hemoglobin 28.3 pg (28.0-32.0); Mean Corpuscular Hgb Conc. 32.1 g/dL (32.0-36.0); Mean Corpuscular Volume 88.2 fL (80.0-100.0); Monocytes # (auto) 1.7 10 ^3/uL (0-1.3); Monocytes % (auto) 13.1 % (0.0-12.0); Neutrophils # (auto) 9.9 10 ^3/uL (1.6-8.6); Neutrophils % (auto) 75.4 % (37.0-80.0); Nucleated Red Blood Cells % 0.2 %; Red Blood Cells 5.12 10^6/uL (4.0-5.20); Red Cell Distribution Width 16.6 % (11.8-14.3); White Blood Cell 13.1 10^3/uL (4.4-10.8)
[2020-12-20 06:11] LABS: Bilirubin, Total 0.4 mg/dL (0.2-1.0); Total Protein 8.1 g/dL (6.4-8.2)
[2020-12-20] MEDS: PIPERACILLIN-TAZOB 3.375GM 100 ML IV SCH ×3 (06:27→21:25)
[2020-12-20] MEDS: FLUCONAZOLE 200MG/100ML 100 ML IV SCH ×2 (07:53→10:05)
[2020-12-20] MEDS: SODIUM CHLOR 0.9% PF (SALINE LOCK) 10ML VIAL/SYR IV SCH ×2 (07:54→21:23)
[2020-12-20] MEDS: FUROSEMIDE 40 MG/4 ML VIAL IV SCH (07:54)
[2020-12-20] MEDS: FAMOTIDINE (10MG/ML) 2ML VL IV SCH (07:54)
[2020-12-20] MEDS: ENOXAPARIN SOD 40 MG/0.4 ML SYRINGE SC SCH ×2 (07:55→21:25)
[2020-12-20 09:00] VITALS: BP 151/96
[2020-12-20] MEDS ORDERED: CLINIMIX PER PHARMACY 0 ML IV SCH (12:00)
[2020-12-20 12:30] VITALS: BP 134/93
[2020-12-20] MEDS: POTASSIUM CHL 20MEQ/100ML 100 ML IV SCH ×2 (12:43→13:42)
[2020-12-20 12:46] LABS: Magnesium 1.9 mg/dL (1.6-2.6)
[2020-12-20 12:51] LABS: Phosphorus 0.1 mg/dL (2.5-4.90)
[2020-12-20] MEDS ORDERED: SODIUM PHOSP 40 MEQ in D5W 5% 250 ML IV ONE (16:00)
[2020-12-20 17:00] VITALS: BP 148/92
[2020-12-20] MEDS ORDERED: AMINO ACID INFUSION IN D10W 1,000 ML IV NR (20:00)
[2020-12-20 22:00] VITALS: BP 138/77
[2020-12-21] MEDS: IPRATROPIUM BROM 0.5 MG/2.5ML INH SOL NEB SCH ×3 (00:25→11:29)
[2020-12-21] MEDS: ALBUTEROL SULF 2.5 MG/0.5ML(0.5%) NEB SOLN NEB SCH ×3 (00:25→11:29)
[2020-12-21 05:00] VITALS: BP 146/70
[2020-12-21] MEDS: PIPERACILLIN-TAZOB 3.375GM 100 ML IV SCH ×3 (05:31→22:00)
[2020-12-21] MEDS: ACCU-CHEK COMFORT CURVE STRIP VI SCH ×4 (05:31→23:36)
[2020-12-21] MEDS: InsuLIN REG 1unit/0.01ml Soln (100units/ml) SC SCH ×4 (05:34→23:50)
[2020-12-21 07:09] LABS: Basophils # (auto) 0 10 ^3/uL (0-0.2); Basophils % (auto) 0.3 % (0.0-2.0); Eosinophils # (auto) 0.3 10 ^3/uL (0-0.8); Eosinophils % (auto) 2.8 % (0.0-7.0); Hematocrit 45.2 % (36.0-46.0); Hemoglobin 14.2 g/dL (12.2-16.2); Lymphocytes # (auto) 1.3 10 ^3/uL (0.4-5.4); Lymphocytes % (auto) 12.6 % (10.0-50.0); Mean Corpuscular Hemoglobin 28.4 pg (28.0-32.0); Mean Corpuscular Hgb Conc. 31.5 g/dL (32.0-36.0); Mean Corpuscular Volume 90.3 fL (80.0-100.0); Monocytes # (auto) 1.6 10 ^3/uL (0-1.3); Monocytes % (auto) 15.2 % (0.0-12.0); Neutrophils # (auto) 7.2 10 ^3/uL (1.6-8.6); Neutrophils % (auto) 69.1 % (37.0-80.0); Nucleated Red Blood Cells % 0.2 %; Red Blood Cells 5.01 10^6/uL (4.0-5.20); White Blood Cell 10.4 10^3/uL (4.4-10.8)
[2020-12-21 07:24] LABS: Potassium 3.3 mmol/L (3.5-5.1)
[2020-12-21 07:35] LABS: Albumin 2.1 g/dL (3.4-5.0); BUN/Creatinine Ratio 32.3; Bilirubin, Total 0.4 mg/dL (0.2-1.0); Calcium 8.3 mg/dL (8.5-10.1); Magnesium 2.1 mg/dL (1.6-2.6); Phosphorus 2.9 mg/dL (2.5-4.90); Pre Albumin 6.7 mg/dL (20.0-40.0); Total Protein 7.9 g/dL (6.4-8.2)
[2020-12-21 09:00] VITALS: BP 123/74
[2020-12-21] MEDS: FAMOTIDINE (10MG/ML) 2ML VL IV SCH (09:56)
[2020-12-21] MEDS: ENOXAPARIN SOD 40 MG/0.4 ML SYRINGE SC SCH (09:56)
[2020-12-21] MEDS: FLUCONAZOLE 200MG/100ML 100 ML IV SCH ×2 (09:57→18:37)
[2020-12-21] MEDS: FUROSEMIDE 40 MG/4 ML VIAL IV SCH (09:57)
[2020-12-21] MEDS: SODIUM CHLOR 0.9% PF (SALINE LOCK) 10ML VIAL/SYR IV SCH ×2 (10:04→22:00)
[2020-12-21] MEDS: POTASSIUM CHL 20MEQ/100ML 100 ML IV SCH ×2 (10:16→12:39)
[2020-12-21] MEDS ORDERED: LORazepam 2MG/ML-1ML VIAL IV PRN (11:45)
[2020-12-21] MEDS ORDERED: POTASSIUM CHL 20MEQ/100ML 100 ML IV ONE (11:45)
[2020-12-21] MEDS ORDERED: LABETALOL HCL 5 MG/ML 4ML SYRINGE IV PRN (12:00)
[2020-12-21 12:52] VITALS: BP 129/84
[2020-12-21 17:00] VITALS: BP 123/80
[2020-12-21] MEDS: AMINO ACID INFUSION IN D10W 1,000 ML IV NR (20:56)
[2020-12-21 22:00] VITALS: BP 126/75
[2020-12-21] MEDS ORDERED: InsuLIN REG 1unit/0.01ml Soln (100units/ml) SC SCH (23:45)
[2020-12-22] MEDS: IPRATROPIUM BROM 0.5 MG/2.5ML INH SOL NEB SCH ×4 (01:25→20:22)
[2020-12-22] MEDS: ALBUTEROL SULF 2.5 MG/0.5ML(0.5%) NEB SOLN NEB SCH ×4 (01:25→20:22)
[2020-12-22] MEDS: InsuLIN REG 1unit/0.01ml Soln (100units/ml) SC SCH ×6 (01:55→22:01)
[2020-12-22 05:00] VITALS: BP 133/72
[2020-12-22] MEDS: ACCU-CHEK COMFORT CURVE STRIP VI SCH ×4 (05:36→21:59)
[2020-12-22] MEDS: PIPERACILLIN-TAZOB 3.375GM 100 ML IV SCH ×3 (05:36→21:34)
[2020-12-22 05:56] LABS: Calcium 8.3 mg/dL (8.5-10.1); Magnesium 2.1 mg/dL (1.6-2.6); Potassium 3.5 mmol/L (3.5-5.1)
[2020-12-22 06:00] LABS: BUN/Creatinine Ratio 34.4; Bilirubin, Total 0.2 mg/dL (0.2-1.0); Phosphorus 2.3 mg/dL (2.5-4.90); Total Protein 7.7 g/dL (6.4-8.2)
[2020-12-22] MEDS ORDERED: InsuLIN REG 1unit/0.01ml Soln (100units/ml) SC SCH (07:00)
[2020-12-22 08:48] VITALS: BP 136/61
[2020-12-22] MEDS ORDERED: POTASSIUM PHOSPHATE 22 MEQ in SODIUM CHL 0.9% 100 ML IV ONE (09:30)
[2020-12-22] MEDS: FAMOTIDINE (10MG/ML) 2ML VL IV SCH (09:59)
[2020-12-22] MEDS: FLUCONAZOLE 200MG/100ML 100 ML IV SCH ×2 (09:59→11:28)
[2020-12-22] MEDS: SODIUM CHLOR 0.9% PF (SALINE LOCK) 10ML VIAL/SYR IV SCH ×2 (09:59→21:34)
[2020-12-22 13:00] VITALS: BP 155/83
[2020-12-22 17:00] VITALS: BP 149/82
[2020-12-22] MEDS ORDERED: AMINO ACID INFUSION IN D10W 1,000 ML IV NR (20:00)
[2020-12-22 22:00] VITALS: BP 136/88
[2020-12-22] MEDS: INSULIN LANTUS (GLARGINE) 1 /0.01ml (100units/ml) SC SCH (22:00)
[2020-12-23] VITALS (40 sets, daily range): BP systolic 75–167; BP diastolic 43–103
[2020-12-23] MEDS: IPRATROPIUM BROM 0.5 MG/2.5ML INH SOL NEB SCH ×4 (00:10→18:26)
[2020-12-23] MEDS: ALBUTEROL SULF 2.5 MG/0.5ML(0.5%) NEB SOLN NEB SCH ×4 (00:10→18:26)
[2020-12-23] MEDS: ACCU-CHEK COMFORT CURVE STRIP VI SCH ×6 (02:00→21:31)
[2020-12-23] MEDS: InsuLIN REG 1unit/0.01ml Soln (100units/ml) SC SCH ×6 (02:00→21:29)
[2020-12-23] MEDS: PIPERACILLIN-TAZOB 3.375GM 100 ML IV SCH ×2 (05:33→14:00)
[2020-12-23] MEDS: INSULIN LANTUS (GLARGINE) 1 /0.01ml (100units/ml) SC SCH ×2 (06:10→21:30)
[2020-12-23 06:57] LABS: Potassium 3.9 mmol/L (3.5-5.1)
[2020-12-23 07:07] LABS: BUN/Creatinine Ratio 34.6; Bilirubin, Total 0.3 mg/dL (0.2-1.0); Calcium 9.1 mg/dL (8.5-10.1); Magnesium 2.1 mg/dL (1.6-2.6); Phosphorus 2.6 mg/dL (2.5-4.90); Total Protein 7.6 g/dL (6.4-8.2)
[2020-12-23] MEDS: FLUCONAZOLE 200MG/100ML 100 ML IV SCH ×2 (10:00→11:00)
[2020-12-23] MEDS: SODIUM CHLOR 0.9% PF (SALINE LOCK) 10ML VIAL/SYR IV SCH ×2 (10:00→21:30)
[2020-12-23] MEDS: FAMOTIDINE (10MG/ML) 2ML VL IV SCH (10:00)
[2020-12-23] MEDS ORDERED: ROCURONIUM 10MG/ML 10ML VIAL IV ONE ×2 (15:33→16:01)
[2020-12-23] MEDS ORDERED: ETOMIDATE (2MG/ML) 20ML VIAL IV ONE (15:33)
[2020-12-23] MEDS ORDERED: LIDOCAINE 2%HCL (LOCAL ANESTH.) INJ 20ML MDV ONE (15:52)
[2020-12-23] MEDS ORDERED: LIDOCAINE HCL 2% TOP JELLY 5ML TOP ONE (15:52)
[2020-12-23] MEDS ORDERED: NOREPINEPHRINE 8 MG/250ML KIT 250 ML IV ONE (16:25)
[2020-12-23] MEDS: NOREPINEPHRINE 8 MG/250ML KIT 250 ML IV SCH (16:30)
[2020-12-23] MEDS ORDERED: MIDAZOLAM DRIP 50 mg/50mL 50 ML IV ONE (16:58)
[2020-12-23] MEDS ORDERED: fentaNYL Drip 2500mCg/250mlNS 250 ML IV ONE (16:58)
[2020-12-23] MEDS: MIDAZOLAM DRIP 50 mg/50mL 50 ML IV SCH (17:07)
[2020-12-23] MEDS ORDERED: VANCOMYCIN PER PHARMACY 0 MG IV SCH (17:15)
[2020-12-23] MEDS: fentaNYL Drip 2500mCg/250mlNS 250 ML IV SCH (18:46)
[2020-12-23] MEDS: VANCOMYCIN 1GM/250ML 250 ML IV SCH (19:30)
[2020-12-23] MEDS ORDERED: AMINO ACID INFUSION IN D10W 1,000 ML IV NR (20:00)
[2020-12-23] MEDS: MEROPENEM 1GM IVPB 100 ML IV SCH (21:30)
[2020-12-23] MEDS ORDERED: ACETAMINOPHEN 650 mg PER 20.3 mL UD GT PRN (22:00)
[2020-12-24] VITALS (91 sets, daily range): BP systolic 98–158; BP diastolic 32–108
[2020-12-24] MEDS: ACCU-CHEK COMFORT CURVE STRIP VI SCH ×6 (02:10→22:23)
[2020-12-24] MEDS: InsuLIN REG 1unit/0.01ml Soln (100units/ml) SC SCH ×6 (02:16→22:25)
[2020-12-24] MEDS: VANCOMYCIN 1GM/250ML 250 ML IV SCH ×3 (03:44→20:37)
[2020-12-24 06:07] LABS: Basophils # (auto) 0.1 10 ^3/uL (0-0.2); Basophils % (auto) 0.9 % (0.0-2.0); Eosinophils # (auto) 0.6 10 ^3/uL (0-0.8); Eosinophils % (auto) 6.1 % (0.0-7.0); Hematocrit 44.7 % (36.0-46.0); Lymphocytes # (auto) 1.1 10 ^3/uL (0.4-5.4); Mean Corpuscular Hemoglobin 28.9 pg (28.0-32.0); Mean Corpuscular Hgb Conc. 31.3 g/dL (32.0-36.0); Mean Corpuscular Volume 92.5 fL (80.0-100.0); Monocytes # (auto) 0.6 10 ^3/uL (0-1.3); Monocytes % (auto) 6.3 % (0.0-12.0); Neutrophils # (auto) 7.7 10 ^3/uL (1.6-8.6); Neutrophils % (auto) 75.7 % (37.0-80.0); Nucleated Red Blood Cells % 0.2 %; Red Blood Cells 4.84 10^6/uL (4.0-5.20); Red Cell Distribution Width 16.8 % (11.8-14.3); White Blood Cell 10.1 10^3/uL (4.4-10.8)
[2020-12-24] MEDS: INSULIN LANTUS (GLARGINE) 1 /0.01ml (100units/ml) SC SCH ×2 (06:20→22:30)
[2020-12-24] MEDS: MEROPENEM 1GM IVPB 100 ML IV SCH ×3 (06:25→22:22)
[2020-12-24 06:27] LABS: Albumin 1.8 g/dL (3.4-5.0); Calcium 8.5 mg/dL (8.5-10.1); Potassium 3.9 mmol/L (3.5-5.1)
[2020-12-24 06:29] LABS: BUN/Creatinine Ratio 24.4
[2020-12-24 06:32] LABS: Bilirubin, Total 0.6 mg/dL (0.2-1.0); Phosphorus 1.2 mg/dL (2.5-4.90); Total Protein 7.2 g/dL (6.4-8.2)
[2020-12-24] MEDS: ALBUTEROL SULF 2.5 MG/0.5ML(0.5%) NEB SOLN NEB SCH ×4 (06:33→18:52)
[2020-12-24] MEDS: IPRATROPIUM BROM 0.5 MG/2.5ML INH SOL NEB SCH ×4 (06:33→18:52)
[2020-12-24] MEDS: SODIUM CHLOR 0.9% PF (SALINE LOCK) 10ML VIAL/SYR IV SCH ×2 (10:58→22:23)
[2020-12-24] MEDS: FLUCONAZOLE 200MG/100ML 100 ML IV SCH ×2 (10:59→12:26)
[2020-12-24] MEDS: FAMOTIDINE (10MG/ML) 2ML VL IV SCH (10:59)
[2020-12-24] MEDS ORDERED: SODIUM PHOSPHATES IV ONE (12:00)
[2020-12-24] MEDS ORDERED: SODIUM CHL 0.9% IV ONE (12:00)
[2020-12-24] MEDS: ACETYLCYSTEINE 10 %(100MG/ML) SOL 4ML NEB SCH ×2 (12:45→18:53)
[2020-12-24] MEDS: fentaNYL Drip 2500mCg/250mlNS 250 ML IV SCH (13:27)
[2020-12-24] MEDS: NOREPINEPHRINE 8 MG/250ML KIT 250 ML IV SCH (15:55)
[2020-12-24] MEDS: MIDAZOLAM DRIP 50 mg/50mL 50 ML IV SCH (16:21)
[2020-12-24] MEDS ORDERED: ACETYLCYSTEINE 10 %(100MG/ML) SOL 4ML NEB SCH (18:00)
[2020-12-24] MEDS: BUDESONIDE (INHALATION) 0.5 MG/2 ML NEB NEB SCH (18:52)
[2020-12-24] MEDS ORDERED: AMINO ACID INFUSION IN D10W 2,000 ML IV NR (20:00)
[2020-12-24] MEDS ORDERED: AMINO ACID INFUSION IN D10W 1,000 ML IV NR (20:00)
[2020-12-25] VITALS (61 sets, daily range): BP systolic 82–145; BP diastolic 29–99
[2020-12-25] MEDS: ACETYLCYSTEINE 10 %(100MG/ML) SOL 4ML NEB SCH ×4 (00:45→19:44)
[2020-12-25] MEDS: ACCU-CHEK COMFORT CURVE STRIP VI SCH ×6 (02:30→22:10)
[2020-12-25] MEDS: InsuLIN REG 1unit/0.01ml Soln (100units/ml) SC SCH ×6 (02:30→22:30)
[2020-12-25 04:34] LABS: Basophils # (auto) 0.1 10 ^3/uL (0-0.2); Basophils % (auto) 0.6 % (0.0-2.0); Eosinophils # (auto) 0.7 10 ^3/uL (0-0.8); Eosinophils % (auto) 5.9 % (0.0-7.0); Hematocrit 42.1 % (36.0-46.0); Hemoglobin 13.6 g/dL (12.2-16.2); Lymphocytes # (auto) 0.9 10 ^3/uL (0.4-5.4); Mean Corpuscular Hemoglobin 28.7 pg (28.0-32.0); Mean Corpuscular Hgb Conc. 32.4 g/dL (32.0-36.0); Mean Corpuscular Volume 88.6 fL (80.0-100.0); Monocytes # (auto) 0.7 10 ^3/uL (0-1.3); Monocytes % (auto) 5.9 % (0.0-12.0); Neutrophils # (auto) 9.2 10 ^3/uL (1.6-8.6); Neutrophils % (auto) 79.6 % (37.0-80.0); Red Blood Cells 4.75 10^6/uL (4.0-5.20); Red Cell Distribution Width 16.7 % (11.8-14.3); White Blood Cell 11.5 10^3/uL (4.4-10.8)
[2020-12-25 04:48] LABS: Albumin 1.6 g/dL (3.4-5.0); Bilirubin, Total 0.6 mg/dL (0.2-1.0); Calcium 8.2 mg/dL (8.5-10.1); Magnesium 1.5 mg/dL (1.6-2.6); Total Protein 6.6 g/dL (6.4-8.2)
[2020-12-25 04:50] LABS: Phosphorus 0.9 mg/dL (2.5-4.90)
[2020-12-25] MEDS: VANCOMYCIN 1GM/250ML 250 ML IV SCH (04:58)
[2020-12-25] MEDS ORDERED: SODIUM PHOSPHATES 20 MEQ in SODIUM CHL 0.9% 100 ML IV ONE ×2 (05:00→14:00)
[2020-12-25] MEDS: MAGNESIUM SULFATE 1GM/100ML 100 ML IV SCH ×2 (05:41→06:30)
[2020-12-25] MEDS: POTASSIUM CHL 20MEQ/100ML 100 ML IV SCH ×3 (05:41→14:49)
[2020-12-25] MEDS: IPRATROPIUM BROM 0.5 MG/2.5ML INH SOL NEB SCH ×4 (07:02→19:44)
[2020-12-25] MEDS: ALBUTEROL SULF 2.5 MG/0.5ML(0.5%) NEB SOLN NEB SCH ×3 (07:03→12:13)
[2020-12-25] MEDS: BUDESONIDE (INHALATION) 0.5 MG/2 ML NEB NEB SCH ×2 (07:03→22:52)
[2020-12-25] MEDS: INSULIN LANTUS (GLARGINE) 1 /0.01ml (100units/ml) SC SCH ×2 (07:08→22:00)
[2020-12-25] MEDS: MEROPENEM 1GM IVPB 100 ML IV SCH ×3 (08:27→22:10)
[2020-12-25] MEDS: MIDAZOLAM DRIP 50 mg/50mL 50 ML IV SCH (08:58)
[2020-12-25] MEDS ORDERED: VANCOMYCIN 1GM/250ML 250 ML IV SCH ×2 (10:00→23:00)
[2020-12-25] MEDS: SODIUM CHLOR 0.9% PF (SALINE LOCK) 10ML VIAL/SYR IV SCH ×2 (10:00→22:10)
[2020-12-25] MEDS ORDERED: acetaZOLAMIDE SODIUM 500 MG VL IV ONE (10:45)
[2020-12-25] MEDS: FLUCONAZOLE 200MG/100ML 100 ML IV SCH ×2 (10:55→11:00)
[2020-12-25] MEDS: FAMOTIDINE (10MG/ML) 2ML VL IV SCH (11:00)
[2020-12-25] MEDS ORDERED: PHENYLEPHRINE IV 250 ML IV ONE (14:36)
[2020-12-25] MEDS ORDERED: SODIUM CHLORIDE 0.9% 500 ML IV ONE (14:45)
[2020-12-25] MEDS ORDERED: ADENOSINE 6 MG/2 ML INJ IV ONE (15:30)
[2020-12-25] MEDS: PHENYLEPHRINE IV 250 ML IV SCH ×2 (16:09→21:56)
[2020-12-25] MEDS: AMIODARONE 450mg/250ml AE 250 ML IV SCH ×2 (16:10→21:00)
[2020-12-25] MEDS ORDERED: POTASSIUM PHOSPHATE 22 MEQ in SODIUM CHL 0.9% 100 ML IV ONE (18:00)
[2020-12-25] MEDS: LEVALBUTEROL HCL 1.25 MG/3 ML NEB NEB SCH (19:44)
[2020-12-25] MEDS ORDERED: AMINO ACID INFUSION IN D10W 1,000 ML IV NR (20:00)
[2020-12-25] MEDS: NOREPINEPHRINE 8 MG/250ML KIT 250 ML IV SCH (20:09)
[2020-12-25 22:43] LABS: Potassium 3.4 mmol/L (3.5-5.1)
[2020-12-25 22:47] LABS: BUN/Creatinine Ratio 22.9; Calcium 7.6 mg/dL (8.5-10.1); Magnesium 1.8 mg/dL (1.6-2.6); Phosphorus 3.3 mg/dL (2.5-4.90)
[2020-12-26] VITALS (93 sets, daily range): BP systolic 104–164; BP diastolic 51–82
[2020-12-26] MEDS: ACETYLCYSTEINE 10 %(100MG/ML) SOL 4ML NEB SCH ×4 (00:03→18:31)
[2020-12-26] MEDS: IPRATROPIUM BROM 0.5 MG/2.5ML INH SOL NEB SCH ×4 (00:03→18:31)
[2020-12-26] MEDS: LEVALBUTEROL HCL 1.25 MG/3 ML NEB NEB SCH ×4 (00:03→18:31)
[2020-12-26] MEDS: fentaNYL Drip 2500mCg/250mlNS 250 ML IV SCH ×2 (00:26→16:00)
[2020-12-26] MEDS: PHENYLEPHRINE IV 250 ML IV SCH ×2 (00:27→02:49)
[2020-12-26] MEDS: ACCU-CHEK COMFORT CURVE STRIP VI SCH ×6 (02:08→22:37)
[2020-12-26] MEDS: InsuLIN REG 1unit/0.01ml Soln (100units/ml) SC SCH ×6 (02:09→22:38)
[2020-12-26] MEDS: MIDAZOLAM DRIP 50 mg/50mL 50 ML IV SCH ×4 (02:50→21:15)
[2020-12-26 04:43] LABS: Basophils # (auto) 0.1 10 ^3/uL (0-0.2); Basophils % (auto) 0.7 % (0.0-2.0); Eosinophils # (auto) 0.7 10 ^3/uL (0-0.8); Eosinophils % (auto) 6.8 % (0.0-7.0); Hematocrit 35.1 % (36.0-46.0); Hemoglobin 11.3 g/dL (12.2-16.2); Lymphocytes # (auto) 1.3 10 ^3/uL (0.4-5.4); Lymphocytes % (auto) 11.8 % (10.0-50.0); Mean Corpuscular Hemoglobin 28.2 pg (28.0-32.0); Mean Corpuscular Hgb Conc. 32.1 g/dL (32.0-36.0); Mean Corpuscular Volume 87.9 fL (80.0-100.0); Monocytes # (auto) 0.7 10 ^3/uL (0-1.3); Monocytes % (auto) 6.6 % (0.0-12.0); Neutrophils # (auto) 8.1 10 ^3/uL (1.6-8.6); Neutrophils % (auto) 74.1 % (37.0-80.0); Red Blood Cells 3.99 10^6/uL (4.0-5.20); Red Cell Distribution Width 16.8 % (11.8-14.3); White Blood Cell 10.9 10^3/uL (4.4-10.8)
[2020-12-26 05:16] LABS: Albumin 1.3 g/dL (3.4-5.0); Calcium 7.1 mg/dL (8.5-10.1); Magnesium 1.5 mg/dL (1.6-2.6)
[2020-12-26 05:27] LABS: Bilirubin, Total 0.8 mg/dL (0.2-1.0); Phosphorus 2.3 mg/dL (2.5-4.90); Total Protein 5.6 g/dL (6.4-8.2)
[2020-12-26] MEDS: MEROPENEM 1GM IVPB 100 ML IV SCH ×3 (06:23→21:34)
[2020-12-26] MEDS: INSULIN LANTUS (GLARGINE) 1 /0.01ml (100units/ml) SC SCH ×2 (06:26→22:39)
[2020-12-26] MEDS: BUDESONIDE (INHALATION) 0.5 MG/2 ML NEB NEB SCH ×2 (07:06→18:31)
[2020-12-26 07:42] LABS: Potassium 2.9 mmol/L (3.5-5.1)
[2020-12-26] MEDS: MAGNESIUM SULFATE 1GM/100ML 100 ML IV SCH ×2 (09:20→11:01)
[2020-12-26] MEDS: FAMOTIDINE (10MG/ML) 2ML VL IV SCH (10:58)
[2020-12-26] MEDS: SODIUM CHLOR 0.9% PF (SALINE LOCK) 10ML VIAL/SYR IV SCH ×2 (10:58→21:35)
[2020-12-26] MEDS: FLUCONAZOLE 200MG/100ML 100 ML IV SCH ×3 (10:58→16:53)
[2020-12-26] MEDS ORDERED: POTASSIUM PHOSPHATE 44 MEQ in D5W 5% 250 ML IV ONE (15:00)
[2020-12-26] MEDS ORDERED: Glucerna 1.2 Cal 1Liter BOTTLE GT SCH (15:00)
[2020-12-26] MEDS: NOREPINEPHRINE 8 MG/250ML KIT 250 ML IV SCH (16:30)
[2020-12-26] MEDS: POTASSIUM CHL 20MEQ/100ML 100 ML IV SCH ×2 (16:44→16:53)
[2020-12-26] MEDS: FREE WATER GT SCH ×2 (18:22→23:07)
[2020-12-26] MEDS ORDERED: AMINO ACID INFUSION IN D10W 1,000 ML IV NR (20:00)
[2020-12-26 23:03] LABS: Magnesium 2.2 mg/dL (1.6-2.6); Phosphorus 5.9 mg/dL (2.5-4.90)
[2020-12-26] MEDS: AMIODARONE HCL 200 MG TAB PO SCH (23:07)
[2020-12-27] VITALS (74 sets, daily range): BP systolic 110–154; BP diastolic 53–75
[2020-12-27] MEDS: PHENYLEPHRINE IV 250 ML IV SCH ×3 (00:05→16:45)
[2020-12-27] MEDS: LEVALBUTEROL HCL 1.25 MG/3 ML NEB NEB SCH ×3 (00:11→12:01)
[2020-12-27] MEDS: IPRATROPIUM BROM 0.5 MG/2.5ML INH SOL NEB SCH ×3 (00:11→12:01)
[2020-12-27] MEDS: ACETYLCYSTEINE 10 %(100MG/ML) SOL 4ML NEB SCH ×3 (00:12→12:01)
[2020-12-27] MEDS: ACCU-CHEK COMFORT CURVE STRIP VI SCH ×5 (01:11→18:00)
[2020-12-27] MEDS: InsuLIN REG 1unit/0.01ml Soln (100units/ml) SC SCH ×5 (01:12→18:00)
[2020-12-27] MEDS: MIDAZOLAM DRIP 50 mg/50mL 50 ML IV SCH ×3 (01:26→08:23)
[2020-12-27] MEDS: MEROPENEM 1GM IVPB 100 ML IV SCH (05:03)
[2020-12-27] MEDS ORDERED: InsuLIN REG 1unit/0.01ml Soln (100units/ml) SC ONE (06:30)
[2020-12-27] MEDS: FREE WATER GT SCH ×3 (06:30→18:00)
[2020-12-27] MEDS: INSULIN LANTUS (GLARGINE) 1 /0.01ml (100units/ml) SC SCH (06:46)
[2020-12-27 06:56] LABS: Basophils # (auto) 0 10 ^3/uL (0-0.2); Basophils % (auto) 0.3 % (0.0-2.0); Eosinophils # (auto) 0 10 ^3/uL (0-0.8); Eosinophils % (auto) 0.2 % (0.0-7.0); Hemoglobin 11.4 g/dL (12.2-16.2); Lymphocytes # (auto) 0.4 10 ^3/uL (0.4-5.4); Lymphocytes % (auto) 4.9 % (10.0-50.0); Mean Corpuscular Hemoglobin 28.2 pg (28.0-32.0); Mean Corpuscular Hgb Conc. 31.8 g/dL (32.0-36.0); Mean Corpuscular Volume 88.8 fL (80.0-100.0); Monocytes # (auto) 0.3 10 ^3/uL (0-1.3); Monocytes % (auto) 4.6 % (0.0-12.0); Neutrophils # (auto) 6.7 10 ^3/uL (1.6-8.6); Nucleated Red Blood Cells % 0.1 %; Red Blood Cells 4.05 10^6/uL (4.0-5.20); Red Cell Distribution Width 17.5 % (11.8-14.3); White Blood Cell 7.5 10^3/uL (4.4-10.8)
[2020-12-27 07:15] LABS: Potassium 4.7 mmol/L (3.5-5.1)
[2020-12-27 07:29] LABS: Albumin 1.5 g/dL (3.4-5.0); BUN/Creatinine Ratio 21.5; Bilirubin, Total 0.3 mg/dL (0.2-1.0); Calcium 7.8 mg/dL (8.5-10.1); Magnesium 2.4 mg/dL (1.6-2.6); Phosphorus 4.1 mg/dL (2.5-4.90); Total Protein 6.4 g/dL (6.4-8.2)
[2020-12-27] MEDS: fentaNYL Drip 2500mCg/250mlNS 250 ML IV SCH (08:18)
[2020-12-27] MEDS: FAMOTIDINE (10MG/ML) 2ML VL IV SCH (10:00)
[2020-12-27] MEDS: AMIODARONE HCL 200 MG TAB PO SCH (10:00)
[2020-12-27] MEDS: FLUCONAZOLE 200MG/100ML 100 ML IV SCH ×2 (14:30→18:30)
[2020-12-27] MEDS: NOREPINEPHRINE 8 MG/250ML KIT 250 ML IV SCH (16:30)
[2020-12-27] MEDS ORDERED: MEROPENEM 1GM IVPB 100 ML IV SCH (17:00)
[2020-12-27] MEDS: SODIUM CHLOR 0.9% PF (SALINE LOCK) 10ML VIAL/SYR IV SCH (17:05)
[2020-12-27] MEDS ORDERED: INSULIN LANTUS (GLARGINE) 1 /0.01ml (100units/ml) SC SCH (22:00)
== END 2020-12-27 18:36 | disposition short-term general hospital (02) | DRG 870 ==
LOC: EDBD 10:30 → ER 10:30 → ICU WEST 17:10 → WEST WING 12-17 09:47 → ICU WEST 12-24 10:10
PROVIDERS: ADMIT Nurse Practitioner Acute Care; ATTEND Internal Medicine
PROC: 5A1955Z Respiratory Ventilation, Greater than 96 Consecutive Hours (ICD-10-PCS; principal; 2020-12-05)
PROC: 0BH17EZ Insertion of Endotracheal Airway into Trachea, Via Natural or Artificial Opening (ICD-10-PCS; 2020-12-05)
PROC: 5A09357 Assistance with Respiratory Ventilation, Less than 24 Consecutive Hours, Continuous Positive Airway Pressure (ICD-10-PCS; 2020-12-05)
PROC: 02HV33Z Insertion of Infusion Device into Superior Vena Cava, Percutaneous Approach (ICD-10-PCS; 2020-12-13)
PROC: B548ZZA Ultrasonography of Superior Vena Cava, Guidance (ICD-10-PCS; 2020-12-13)
PROC: 0BP1XDZ Removal of Intraluminal Device from Trachea, External Approach (ICD-10-PCS; 2020-12-14)
PROC: 5A09357 Assistance with Respiratory Ventilation, Less than 24 Consecutive Hours, Continuous Positive Airway Pressure (ICD-10-PCS; 2020-12-16)
PROC: 0B9F8ZZ Drainage of Right Lower Lung Lobe, Via Natural or Artificial Opening Endoscopic (ICD-10-PCS; 2020-12-23)
PROC: 5A1955Z Respiratory Ventilation, Greater than 96 Consecutive Hours (ICD-10-PCS; 2020-12-23)
PROC: 5A09357 Assistance with Respiratory Ventilation, Less than 24 Consecutive Hours, Continuous Positive Airway Pressure (ICD-10-PCS; 2020-12-23)
PROC: 0B968ZZ Drainage of Right Lower Lobe Bronchus, Via Natural or Artificial Opening Endoscopic (ICD-10-PCS; 2020-12-23)
DX: A41.9 Sepsis, unspecified organism (principal); J96.02 Acute respiratory failure with hypercapnia; R65.21 Severe sepsis with septic shock; G93.41 Metabolic encephalopathy; N17.0 Acute kidney failure with tubular necrosis; J18.9 Pneumonia, unspecified organism; I50.43 Acute on chronic combined systolic (congestive) and diastolic (congestive) heart failure; J96.01 Acute respiratory failure with hypoxia; E87.2 Acidosis; E87.3 Alkalosis; Z68.42 Body mass index [BMI] 45.0-49.9, adult; Z66 Do not resuscitate; I11.0 Hypertensive heart disease with heart failure; E66.01 Morbid (severe) obesity due to excess calories; E11.9 Type 2 diabetes mellitus without complications; E87.6 Hypokalemia; J44.9 Chronic obstructive pulmonary disease, unspecified; I48.91 Unspecified atrial fibrillation; I27.20 Pulmonary hypertension, unspecified; Z79.84 Long term (current) use of oral hypoglycemic drugs; Z79.899 Other long term (current) drug therapy
CPT/HCPCS: 31500; 36415; 36556; 36569; 36600; 71045; 72100; 72170; 72192; 80048; 80053; 80202; 81001; 82040; 82542; 82805; 82962; 83036; 83735; 83880; 84100; 84443; 84478; 84484; 85025; 85379; 85610; 85730; 87070; 87081; 87205; 87426; 92610; 93005; 93306; 93970; 94002; 94003; 94640; 94660; 94668; 97110; 97163; A4618; G0378; J0153; J0330; J0696; J1450; J1815; J2185; J2250; J2405; J2543; J2704; J3480; J3490; J7060